=== PATIENT | male | born 1985 | race Caucasian/White ===

== ENCOUNTER 2018-04-25 22:00 | Emergency (ER) | payer OTHER ==
[~2018-04-25] VITALS: Ht 175.3 cm; Wt 97.5 kg
--- NOTE | 2018-04-25 23:08 | NUR ---
DR RAYMUNDO GALLEGO MD AT BEDSIDE FOR MSE.
--- NOTE | 2018-04-25 23:20 | NUR ---
Patient discharged to home in stable conditon. Written and verbal after care instructions given. Patient verbalizes understanding of instructions. Pt accompanied by significant other. No distress noted. Pt took all belongings.
[2018-04-25 23:29] VITALS: BP 127/84
== END 2018-04-25 23:30 | disposition home or self-care (01) ==
LOC: ER 22:02
DX: M54.5 Low back pain (principal)
CPT/HCPCS: 99281; A4663